=== PATIENT | female | born 1980 | race Caucasian/White ===

== ENCOUNTER 2017-03-04 20:39 | Day surgery (SDCO) | payer OTHER ==
[2017-03-04 22:18] LABS: BASOPHIL 0.7 % (0-2); EOSINOPHIL 4.1 % (0-5); HCT 32.9 % (37.0-47.0); LYMPHOCYTE 33.2 % (15-48); MCH 30.2 pg (25.0-31.0); MCHC 33.4 g/dL (32.0-36.0); MCV 90.4 fL (78.0-100.0); MONOCYTE 10.5 % (0-12); NEUTROPHIL 51.5 % (41-80); PLT 339 K/uL (150-400); RBC 3.64 M/uL (4.20-5.40); WBC 7.1 K/uL (4.0-10.5)
[2017-03-04 22:19] LABS: BILIRUBIN NEGATIVE (NEGATIVE); BLOOD NEGATIVE Ery/uL (NEGATIVE); CLARITY CLEAR (CLEAR); COLOR YELLOW (YELLOW); GLUCOSE (U) NORMAL (NORMAL); KETONE (U) NEGATIVE (NEGATIVE); LEUKOCYTES NEGATIVE Leu/uL (NEGATIVE); NITRITE NEGATIVE (NEGATIVE); PROTEIN TRACE (LOW) mg/dL (NEGATIVE); SPECIFIC GRAVITY 1.015 (1.001-1.030); UROBILINOGEN 0.2 mg/dL (0.2-1.0); pH 5.5 (5.0-9.0)
[2017-03-04 22:27] LABS: BACTERIA TRACE; MUCOUS MODERATE; URINARY RBC RARE
[2017-03-04 22:30] LABS: AMPHETAMINES NEGATIVE (NEGATIVE); BARBITURATES NEGATIVE (NEGATIVE); BENZODIAZEPINES POSITIVE (NEGATIVE); COCAINE NEGATIVE (NEGATIVE); MARIJUANA (THC) NEGATIVE (NEGATIVE)
[2017-03-04 22:31] LABS: ACETAMINOPHEN (TYLENOL) < 5.0 ug/mL (10.0-30.0); ALBUMIN 3.6 g/dL (3.5-5.0); ALCOHOL (ETOH) MEDICAL NONE DETECTED; BILIRUBIN - TOTAL 0.2 mg/dL (0.1-1.0); CREATININE 1.3 mg/dL (0.5-1.0); GLOBULIN (CALCULATION) 2.7 g/dL (2.2-4.2); POTASSIUM 3.7 mmol/L (3.5-5.1); SALICYLATE < 6 ug/mL (0-300); TOTAL PROTEIN 6.3 g/dL (6.4-8.3)
[2017-03-04 22:31] LABS: METHADONE NEGATIVE (NEGATIVE); TRICYCLIC ANTIDEPRESSANT NEGATIVE (NEGATIVE)
[2017-03-05 05:09] LABS: BASOPHIL 0.2 % (0-2); EOSINOPHIL 3.2 % (0-5); HCT 33.5 % (37.0-47.0); HGB 11.6 g/dl (12.5-16.0); LYMPHOCYTE 21.3 % (15-48); MCH 30.7 pg (25.0-31.0); MCHC 34.6 g/dL (32.0-36.0); MCV 88.6 fL (78.0-100.0); MPV 10.8 fL (6.0-9.5); NEUTROPHIL 67.3 % (41-80); PLT 328 K/uL (150-400); RBC 3.78 M/uL (4.20-5.40); RDW 11.8 % (11.5-14.0); WBC 8.8 K/uL (4.0-10.5)
[2017-03-05 05:18] LABS: ALBUMIN 3.8 g/dL (3.5-5.0); BILIRUBIN - TOTAL 0.2 mg/dL (0.1-1.0); GLOBULIN (CALCULATION) 2.7 g/dL (2.2-4.2); TOTAL PROTEIN 6.5 g/dL (6.4-8.3)
[2017-03-05] MEDS ORDERED: HUMALOG SC (08:04)
[2017-03-05] MEDS ORDERED: LYRICA 50MG CAP50 MG PO (08:04)
[2017-03-05] MEDS ORDERED: VOLTAREN **OUT75 MG PO (08:05)
[2017-03-05] MEDS ORDERED: ZOFRAN4 MG PO (08:05)
[2017-03-05] MEDS ORDERED: NORCO 5-325 TA1 EACH PO (08:05)
== END 2017-03-05 07:45 | disposition home or self-care (01) ==
LOC: FER 20:39 → FICU 03-05 00:31
PROVIDERS: Emergency Medicine; ADMIT Internal Medicine
DX: G93.41 Metabolic encephalopathy (principal); T42.6X1A Poisoning by other antiepileptic and sedative-hypnotic drugs, accidental (unintentional), initial encounter; E10.9 Type 1 diabetes mellitus without complications; N17.9 Acute kidney failure, unspecified; M79.7 Fibromyalgia; G35 Multiple sclerosis; F32.9 Major depressive disorder, single episode, unspecified; Z96.41 Presence of insulin pump (external) (internal); Z90.710 Acquired absence of both cervix and uterus; Z90.49 Acquired absence of other specified parts of digestive tract; Z79.4 Long term (current) use of insulin; Z79.1 Long term (current) use of non-steroidal anti-inflammatories (NSAID); Z79.899 Other long term (current) drug therapy; Z98.890 Other specified postprocedural states
CPT/HCPCS: 36415; 36600; 71010; 71250; 80053; 80305; 81001; 82803; 83605; 85025; 94002; G0378; G0480; J1170; J2704

== ENCOUNTER 2020-11-04 12:22 | Emergency (ER) | payer OTHER ==
[~2020-11-04 12:22] MED LIST: ADMELOG100 UNIT/1 SC; AMBIEN CR 12.12.5 MG PO; BENTYL10 MG PO; CYMBALTA30 MG PO; ESTRACE1 MG PO; EXCEDRIN MIGRA1 EACH PO; FIORICET1 EACH PO; HUMALOG SC; IBU800 MG PO; LYRICA 50MG CAP50 MG PO; LYRICA150 MG PO; LYRICA25 MG PO; MACROBID100 MG PO; NORCO 5-325 TA1 EACH PO; PHENERGAN25 M1 PO; PRILOSEC20 MG PO; TRESIBA100 UNIT/1 SC; VOLTAREN **OUT75 MG PO; ZANAFLEX4 MG PO; ZOFRAN4 MG PO; ZOFRAN8 MG PO
[2020-11-04 15:01] LABS: BILIRUBIN NEGATIVE (NEGATIVE); BLOOD NEGATIVE Ery/uL (NEGATIVE); CLARITY CLEAR (CLEAR); COLOR YELLOW (YELLOW); GLUCOSE (U) 3+ mg/dL (NORMAL); LEUKOCYTES NEGATIVE Leu/uL (NEGATIVE); NITRITE NEGATIVE (NEGATIVE); PROTEIN NEGATIVE (NEGATIVE); SPECIFIC GRAVITY 1.015 (1.001-1.030); UROBILINOGEN 0.2 mg/dL (0.2-1.0)
[2020-11-04 15:04] LABS: EOSINOPHIL 2.6 % (0-5); HCT 38.1 % (37.0-47.0); HGB 12.5 g/dl (12.5-16.0); MCH 30.3 pg (25.0-31.0); MCHC 32.8 g/dL (32.0-36.0); MCV 92.5 fL (78.0-100.0); MONOCYTE 5.8 % (0-12); MPV 10.5 fL (6.0-9.5); NEUTROPHIL 68.4 % (41-80); NRBC 0; PLT 378 K/uL (150-400); RBC 4.12 M/uL (4.20-5.40); RDW 11.7 % (11.5-14.0)
[2020-11-04 15:37] LABS: ALBUMIN 3.7 g/dL (3.4-5.0); BILIRUBIN - TOTAL 0.3 mg/dL (0.2-1.0); BUN/CREAT RATIO (CALC) 17.4 RATIO; CREATININE 1.15 mg/dL (0.51-0.95); GLOBULIN (CALCULATION) 4.1 g/dL; TOTAL PROTEIN 7.8 g/dL (6.4-8.2)
[2020-11-04] MEDS ORDERED: PREDNISONE 20MG20 MG PO (16:20)
[2020-11-04] MEDS ORDERED: VALACYCLOVIR1000 MG PO (16:20)
== END 2020-11-04 16:45 | disposition home or self-care (01) ==
LOC: FER 12:22
PROVIDERS: Nurse Practitioner Family
DX: G51.0 Bell's palsy (principal); E10.9 Type 1 diabetes mellitus without complications; Z88.8 Allergy status to other drugs, medicaments and biological substances
CPT/HCPCS: 36415; 70450; 80053; 80178; 81003; 85025; 93005

== ENCOUNTER 2020-11-26 13:42 | Emergency (ER) | payer OTHER ==
[~2020-11-26 13:42] MED LIST changes: +PREDNISONE 20MG20 MG PO; +VALACYCLOVIR1000 MG PO
[2020-11-26 14:41] LABS: BASOPHIL 0.8 % (0-2); EOSINOPHIL 2.2 % (0-5); HCT 38.5 % (37.0-47.0); HGB 12.5 g/dl (12.5-16.0); LYMPHOCYTE 21.8 % (15-48); MCHC 32.5 g/dL (32.0-36.0); MCV 92.5 fL (78.0-100.0); MONOCYTE 6.9 % (0-12); MPV 11.1 fL (6.0-9.5); NRBC 0; PLT 322 K/uL (150-400); RBC 4.16 M/uL (4.20-5.40); RDW 13.2 % (11.5-14.0); WBC 8.7 K/uL (4.0-10.5)
[2020-11-26 14:56] LABS: INR 1.06 (0.9-1.2); PROTHROMBIN TIME 13.1 SECONDS (11.4-13.6); PTT 24.3 SECONDS (22.2-34.7)
[2020-11-26 14:57] LABS: D-DIMER < 0.27 ug/mLFEU (0.00-0.41)
[2020-11-26 14:59] LABS: ALBUMIN 3.4 g/dL (3.4-5.0); BILIRUBIN - TOTAL 0.2 mg/dL (0.2-1.0); BUN/CREAT RATIO (CALC) 23.3 RATIO; CREATININE 1.03 mg/dL (0.51-0.95); GLOBULIN (CALCULATION) 3.3 g/dL; MAGNESIUM 2.2 mg/dL (1.8-2.4); POTASSIUM 4.6 mmol/L (3.5-5.1); TOTAL PROTEIN 6.7 g/dL (6.4-8.2)
[2020-11-26 15:10] LABS: PRO-BNP 133 pg/mL (<125)
[2020-11-26] MEDS ORDERED: NORCO 5-325 TA1 EACH PO (18:44)
== END 2020-11-26 19:05 | disposition home or self-care (01) ==
LOC: FER 13:42
PROVIDERS: Emergency Medicine
DX: R07.89 Other chest pain (principal)
CPT/HCPCS: 36415; 71045; 71275; 80053; 82550; 83690; 83735; 83880; 84484; 85025; 85379; 85610; 85730; 93005; J1170; J2405; J7030; Q9967

== ENCOUNTER 2021-06-07 12:16 | Emergency (ER) | payer OTHER ==
[2021-06-07 13:16] LABS: BASOPHIL 0.9 % (0-2); EOSINOPHIL 2.1 % (0-5); HCT 38.4 % (37.0-47.0); HGB 13.1 g/dl (12.5-16.0); LYMPHOCYTE 19.9 % (15-48); MCH 29.7 pg (25.0-31.0); MCHC 34.1 g/dL (32.0-36.0); MCV 87.1 fL (78.0-100.0); MONOCYTE 6.1 % (0-12); NEUTROPHIL 70.6 % (41-80); NRBC 0; PLT 453 K/uL (150-400); RBC 4.41 M/uL (4.20-5.40); RDW 11.9 % (11.5-14.0); WBC 8.5 K/uL (4.0-10.5)
[2021-06-07 13:32] LABS: ALBUMIN 3.8 g/dL (3.4-5.0); BILIRUBIN - TOTAL 0.4 mg/dL (0.2-1.0); BUN/CREAT RATIO (CALC) 8.9 RATIO; CREATININE 1.24 mg/dL (0.51-0.95); GLOBULIN (CALCULATION) 3.6 g/dL; POTASSIUM 4.4 mmol/L (3.5-5.1); TOTAL PROTEIN 7.4 g/dL (6.4-8.2)
[2021-06-07 14:14] LABS: INR 0.95 (0.9-1.2); PROTHROMBIN TIME 12.1 SECONDS (11.8-13.4)
[2021-06-07] MEDS ORDERED: PRILOSEC20 MG PO (17:07)
[2021-06-07] MEDS ORDERED: NORCO 5-325 TA1 EACH PO (17:07)
[2021-06-07] MEDS ORDERED: ZOFRAN4 M1 PO (17:07)
== END 2021-06-07 17:30 | disposition home or self-care (01) ==
LOC: FER 12:16
PROVIDERS: Emergency Medicine
DX: R07.89 Other chest pain (principal); E11.9 Type 2 diabetes mellitus without complications; Z88.8 Allergy status to other drugs, medicaments and biological substances; Z20.822 Contact with and (suspected) exposure to COVID-19
CPT/HCPCS: 36415; 71045; 80053; 84484; 85025; 85379; 85610; 85730; 93005; J1100; J1885; J2270; J2405; U0002

== ENCOUNTER 2021-07-11 13:43 | Emergency (ER) | payer OTHER ==
[~2021-07-11 13:43] MED LIST changes: +ZOFRAN4 M1 PO
[2021-07-11 16:08] LABS: BASOPHIL 0.3 % (0-2); EOSINOPHIL 4.1 % (0-5); LYMPHOCYTE 30.5 % (15-48); MCH 29.8 pg (25.0-31.0); MCHC 33.3 g/dL (32.0-36.0); MCV 89.3 fL (78.0-100.0); MONOCYTE 10.1 % (0-12); NEUTROPHIL 54.7 % (41-80); NRBC 0; PLT 284 K/uL (150-400); RBC 4.03 M/uL (4.20-5.40); RDW 12.3 % (11.5-14.0); WBC 3.9 K/uL (4.0-10.5)
[2021-07-11 16:29] LABS: ALBUMIN 3.4 g/dL (3.4-5.0); BILIRUBIN - TOTAL 0.2 mg/dL (0.2-1.0); BUN/CREAT RATIO (CALC) 10.1 RATIO; CREATININE 1.19 mg/dL (0.51-0.95); GLOBULIN (CALCULATION) 3.5 g/dL; POTASSIUM 3.9 mmol/L (3.5-5.1); TOTAL PROTEIN 6.9 g/dL (6.4-8.2)
[2021-07-11 16:35] LABS: LACTIC ACID 0.9 mmol/L (0.4-1.9)
[2021-07-11 18:30] LABS: BILIRUBIN NEGATIVE (NEGATIVE); BLOOD NEGATIVE Ery/uL (NEGATIVE); CLARITY CLEAR (CLEAR); COLOR YELLOW (YELLOW); GLUCOSE (U) NORMAL (NORMAL); LEUKOCYTES NEGATIVE Leu/uL (NEGATIVE); NITRITE NEGATIVE (NEGATIVE); PROTEIN NEGATIVE (NEGATIVE); SPECIFIC GRAVITY <=1.005 (1.001-1.030); UROBILINOGEN 0.2 mg/dL (0.2-1.0); pH 6.5 (5.0-9.0)
[2021-07-11] MEDS ORDERED: BENTYL10 MG PO (19:11)
[2021-07-11] MEDS ORDERED: ZOFRAN4 M1 PO (19:11)
== END 2021-07-11 19:35 | disposition home or self-care (01) ==
LOC: FER 13:43
PROVIDERS: Nurse Practitioner Family
DX: A08.4 Viral intestinal infection, unspecified (principal); E10.9 Type 1 diabetes mellitus without complications; Z88.8 Allergy status to other drugs, medicaments and biological substances; Z90.49 Acquired absence of other specified parts of digestive tract; Z90.710 Acquired absence of both cervix and uterus; Z98.890 Other specified postprocedural states
CPT/HCPCS: 36415; 80053; 81003; 82150; 83605; 83690; 85025; J2270; J2405; J7030; Q9967

== ENCOUNTER 2021-07-30 18:40 | Emergency (ER) | payer OTHER ==
[2021-07-30 19:56] LABS: BASOPHIL 0.8 % (0-2); EOSINOPHIL 3.6 % (0-5); HCT 34.2 % (37.0-47.0); HGB 11.5 g/dl (12.5-16.0); LYMPHOCYTE 24.2 % (15-48); MCH 30.3 pg (25.0-31.0); MCHC 33.6 g/dL (32.0-36.0); MCV 90.2 fL (78.0-100.0); MONOCYTE 7.7 % (0-12); NEUTROPHIL 63.4 % (41-80); NRBC 0; PLT 402 K/uL (150-400); RBC 3.79 M/uL (4.20-5.40); RDW 11.9 % (11.5-14.0); WBC 7.4 K/uL (4.0-10.5)
[2021-07-30 20:09] LABS: BILIRUBIN - TOTAL 0.5 mg/dL (0.2-1.0); BUN/CREAT RATIO (CALC) 17.5 RATIO; CREATININE 1.14 mg/dL (0.51-0.95); GLOBULIN (CALCULATION) 3.6 g/dL; POTASSIUM 4.6 mmol/L (3.5-5.1); TOTAL PROTEIN 7.6 g/dL (6.4-8.2)
[2021-07-30 20:59] LABS: BILIRUBIN NEGATIVE (NEGATIVE); BLOOD NEGATIVE Ery/uL (NEGATIVE); CLARITY CLEAR (CLEAR); COLOR YELLOW (YELLOW); GLUCOSE (U) 3+ mg/dL (NORMAL); LEUKOCYTES NEGATIVE Leu/uL (NEGATIVE); NITRITE NEGATIVE (NEGATIVE); PROTEIN NEGATIVE (NEGATIVE); SPECIFIC GRAVITY 1.015 (1.001-1.030); UROBILINOGEN 0.2 mg/dL (0.2-1.0); pH 5.5 (5.0-9.0)
[2021-07-30] MEDS ORDERED: MIRALAX17 GM PO (21:51)
== END 2021-07-30 23:00 | disposition home or self-care (01) ==
LOC: FER 18:40
PROVIDERS: Nurse Practitioner Family
DX: K59.00 Constipation, unspecified (principal); R11.2 Nausea with vomiting, unspecified; E10.9 Type 1 diabetes mellitus without complications; Z90.49 Acquired absence of other specified parts of digestive tract; Z90.710 Acquired absence of both cervix and uterus; Z88.8 Allergy status to other drugs, medicaments and biological substances
CPT/HCPCS: 36415; 74022; 80053; 81003; 85025; J1170; J2270; J2405; J7030

== ENCOUNTER 2021-08-05 11:52 | Emergency (ER) | payer OTHER ==
[~2021-08-05] VITALS: Ht 167.6 cm; Wt 59.0 kg
[~2021-08-05 11:52] MED LIST changes: +MIRALAX17 GM PO
[2021-08-05 13:15] LABS: BILIRUBIN NEGATIVE (NEGATIVE); BLOOD NEGATIVE Ery/uL (NEGATIVE); CLARITY CLEAR (CLEAR); COLOR YELLOW (YELLOW); GLUCOSE (U) 3+ mg/dL (NORMAL); LEUKOCYTES NEGATIVE Leu/uL (NEGATIVE); NITRITE NEGATIVE (NEGATIVE); PROTEIN NEGATIVE (NEGATIVE); SPECIFIC GRAVITY 1.015 (1.001-1.030); UROBILINOGEN 0.2 mg/dL (0.2-1.0); pH 6.5 (5.0-9.0)
[2021-08-05 13:15] LABS: BASOPHIL 0.9 % (0-2); EOSINOPHIL 4.7 % (0-5); HCT 37.2 % (37.0-47.0); HGB 12.1 g/dl (12.5-16.0); LYMPHOCYTE 21.4 % (15-48); MCH 30.2 pg (25.0-31.0); MCHC 32.5 g/dL (32.0-36.0); MCV 92.8 fL (78.0-100.0); MONOCYTE 6.8 % (0-12); NEUTROPHIL 65.9 % (41-80); NRBC 0; PLT 323 K/uL (150-400); RBC 4.01 M/uL (4.20-5.40); WBC 6.6 K/uL (4.0-10.5)
[2021-08-05 13:28] LABS: ALBUMIN 3.8 g/dL (3.4-5.0); BILIRUBIN - TOTAL 0.4 mg/dL (0.2-1.0); BUN/CREAT RATIO (CALC) 10.8 RATIO; CREATININE 1.02 mg/dL (0.51-0.95); GLOBULIN (CALCULATION) 3.6 g/dL; POTASSIUM 4.4 mmol/L (3.5-5.1); TOTAL PROTEIN 7.4 g/dL (6.4-8.2)
[2021-08-05] MEDS ORDERED: PHENERGAN25 M1 PO (15:27)
== END 2021-08-05 15:56 | disposition home or self-care (01) ==
LOC: FER 11:52
PROVIDERS: Emergency Medicine
DX: G89.29 Other chronic pain (principal); R10.12 Left upper quadrant pain; E11.9 Type 2 diabetes mellitus without complications; Z88.8 Allergy status to other drugs, medicaments and biological substances
CPT/HCPCS: 36415; 80053; 81003; 83690; 85025; J2405; J7030

== ENCOUNTER 2021-08-20 15:16 | Emergency (ER) | payer OTHER ==
[2021-08-20 15:46] LABS: BILIRUBIN NEGATIVE (NEGATIVE); BLOOD NEGATIVE Ery/uL (NEGATIVE); CLARITY CLOUDY (CLEAR); COLOR YELLOW (YELLOW); GLUCOSE (U) 1+ mg/dL (NORMAL); LEUKOCYTES NEGATIVE Leu/uL (NEGATIVE); NITRITE NEGATIVE (NEGATIVE); PROTEIN NEGATIVE (NEGATIVE); UROBILINOGEN 0.2 mg/dL (0.2-1.0); pH 7.5 (5.0-9.0)
[2021-08-20 15:56] LABS: BACTERIA 2+; SQUAMOUS EPITHELIAL CELLS 20-50
[2021-08-20 16:11] LABS: BASOPHIL 1.4 % (0-2); EOSINOPHIL 4.6 % (0-5); HCT 38.8 % (37.0-47.0); HGB 12.8 g/dl (12.5-16.0); LYMPHOCYTE 31.5 % (15-48); MCH 30.1 pg (25.0-31.0); MCV 91.3 fL (78.0-100.0); MONOCYTE 8.2 % (0-12); MPV 10.4 fL (6.0-9.5); NRBC 0; PLT 489 K/uL (150-400); RBC 4.25 M/uL (4.20-5.40); RDW 11.9 % (11.5-14.0); WBC 6.6 K/uL (4.0-10.5)
[2021-08-20 16:35] LABS: BILIRUBIN - TOTAL 0.4 mg/dL (0.2-1.0); BUN/CREAT RATIO (CALC) 19.8 RATIO; CREATININE 1.16 mg/dL (0.51-0.95); GLOBULIN (CALCULATION) 3.9 g/dL; POTASSIUM 4.6 mmol/L (3.5-5.1); TOTAL PROTEIN 7.9 g/dL (6.4-8.2)
== END 2021-08-20 19:22 | disposition home or self-care (01) ==
LOC: FER 15:16
PROVIDERS: Internal Medicine
DX: I95.1 Orthostatic hypotension (principal); E86.0 Dehydration; R10.12 Left upper quadrant pain; R10.32 Left lower quadrant pain; R11.2 Nausea with vomiting, unspecified; E11.9 Type 2 diabetes mellitus without complications; Z88.8 Allergy status to other drugs, medicaments and biological substances; Z79.4 Long term (current) use of insulin
CPT/HCPCS: 36415; 80053; 81001; 82150; 83690; 85025; 87076; 87088; J2270; J2405; J7030; Q9967

== ENCOUNTER 2021-09-12 18:00 | Emergency (ER) | payer OTHER ==
[2021-09-12 20:45] LABS: BILIRUBIN NEGATIVE (NEGATIVE); BLOOD NEGATIVE Ery/uL (NEGATIVE); CLARITY CLEAR (CLEAR); COLOR YELLOW (YELLOW); GLUCOSE (U) NORMAL (NORMAL); LEUKOCYTES 1+ Leu/uL (NEGATIVE); NITRITE NEGATIVE (NEGATIVE); PROTEIN NEGATIVE (NEGATIVE); SPECIFIC GRAVITY 1.015 (1.001-1.030); UROBILINOGEN 0.2 mg/dL (0.2-1.0)
[2021-09-12 20:48] LABS: BACTERIA TRACE
[2021-09-12 20:52] LABS: BASOPHIL 1.3 % (0-2); EOSINOPHIL 8.1 % (0-5); HGB 11.1 g/dl (12.5-16.0); LYMPHOCYTE 32.7 % (15-48); MCH 30.3 pg (25.0-31.0); MCHC 31.7 g/dL (32.0-36.0); MCV 95.6 fL (78.0-100.0); MONOCYTE 7.3 % (0-12); MPV 10.5 fL (6.0-9.5); NEUTROPHIL 50.2 % (41-80); NRBC 0; PLT 406 K/uL (150-400); RBC 3.66 M/uL (4.20-5.40); RDW 11.9 % (11.5-14.0)
[2021-09-12 21:07] LABS: ALBUMIN 3.4 g/dL (3.4-5.0); BILIRUBIN - TOTAL 0.2 mg/dL (0.2-1.0); BUN/CREAT RATIO (CALC) 14.1 RATIO; CREATININE 0.92 mg/dL (0.51-0.95); GLOBULIN (CALCULATION) 3.3 g/dL; POTASSIUM 4.3 mmol/L (3.5-5.1); TOTAL PROTEIN 6.7 g/dL (6.4-8.2)
== END 2021-09-13 00:09 | disposition home or self-care (01) ==
LOC: FER 18:00
PROVIDERS: Internal Medicine
DX: E10.43 Type 1 diabetes mellitus with diabetic autonomic (poly)neuropathy (principal); K31.84 Gastroparesis; Z79.4 Long term (current) use of insulin; Z88.8 Allergy status to other drugs, medicaments and biological substances
CPT/HCPCS: 36415; 80053; 81001; 83690; 85025; J1885; J2270; J2405; J2765; J7040

== ENCOUNTER → 2021-09-26 | Day surgery (SDC) | payer OTHER ==
[~2021-09-26] VITALS: Ht 170.2 cm; Wt 59.0 kg
[~2021-09-26] MED LIST changes: +ASPIRIN EC81 MG PO
== END | disposition home or self-care (01) ==
LOC: FAS 11:32
DX: E10.43 Type 1 diabetes mellitus with diabetic autonomic (poly)neuropathy (principal); K31.84 Gastroparesis; E10.42 Type 1 diabetes mellitus with diabetic polyneuropathy
CPT/HCPCS: 71045; 76000; 82962; C1788; J0690; J1170; J1644; J2250; J2704; J3010; J7120

== ENCOUNTER 2021-10-09 14:41 | Emergency (ER) | payer OTHER ==
[2021-10-09 19:59] LABS: BASOPHIL 0.9 % (0-2); EOSINOPHIL 2.8 % (0-5); HGB 11.3 g/dl (12.5-16.0); LYMPHOCYTE 19.7 % (15-48); MCH 29.7 pg (25.0-31.0); MCHC 32.3 g/dL (32.0-36.0); MCV 91.9 fL (78.0-100.0); MONOCYTE 5.6 % (0-12); NEUTROPHIL 70.7 % (41-80); NRBC 0; PLT 406 K/uL (150-400); RBC 3.81 M/uL (4.20-5.40); RDW 11.4 % (11.5-14.0); WBC 9.6 K/uL (4.0-10.5)
[2021-10-09 20:14] LABS: ALBUMIN 3.7 g/dL (3.4-5.0); ALKALINE PHOSHATASE 74 U/L (46-116); ALT <6 U/L (14-59); AST 10 U/L (15-37); BILIRUBIN - TOTAL 0.3 mg/dL (0.2-1.0); BUN 25 mg/dL (7-18); BUN/CREAT RATIO (CALC) 25.5 RATIO; CHLORIDE 99 mmol/L (98-107); CO2 (BICARBONATE) 29 mmol/L (21-32); CREATININE 0.98 mg/dL (0.51-0.95); GLOBULIN (CALCULATION) 3.3 g/dL; GLUCOSE 234 mg/dL (74-106); MAGNESIUM 2.2 mg/dL (1.8-2.4); POTASSIUM 4.4 mmol/L (3.5-5.1)
[2021-10-09] MEDS ORDERED: COMPAZINE10 M1 PO (22:38)
== END 2021-10-09 23:20 | disposition home or self-care (01) ==
LOC: FER 14:41
PROVIDERS: Internal Medicine
DX: E10.43 Type 1 diabetes mellitus with diabetic autonomic (poly)neuropathy (principal); K31.84 Gastroparesis; N17.9 Acute kidney failure, unspecified; Z96.41 Presence of insulin pump (external) (internal)
CPT/HCPCS: 36415; 80053; 83735; 85025; J0780; J1642; J2270; J7030

== ENCOUNTER 2021-10-20 20:05 | Inpatient (IN) | payer OTHER ==
[~2021-10-20] VITALS: Ht 170.2 cm; Wt 60.8 kg
[~2021-10-20 20:05] MED LIST changes: +COMPAZINE10 M1 PO
[2021-10-20 21:42] LABS: BASOPHIL 1.2 % (0-2); EOSINOPHIL 9.9 % (0-5); HCT 35.4 % (37.0-47.0); LYMPHOCYTE 30.1 % (15-48); MCH 30.5 pg (25.0-31.0); MCHC 33.9 g/dL (32.0-36.0); MCV 90.1 fL (78.0-100.0); MPV 10.9 fL (6.0-9.5); NEUTROPHIL 48.6 % (41-80); NRBC 0; PLT 329 K/uL (150-400); RBC 3.93 M/uL (4.20-5.40); RDW 11.4 % (11.5-14.0); WBC 6.6 K/uL (4.0-10.5)
[2021-10-20 22:02] LABS: BUN/CREAT RATIO (CALC) 27.2 RATIO; CREATININE 1.03 mg/dL (0.51-0.95); POTASSIUM 4.8 mmol/L (3.5-5.1)
[2021-10-20 22:07] LABS: LACTIC ACID 0.3 mmol/L (0.4-1.9)
[2021-10-21 06:05] LABS: CORONAVIRUS 2019 SARS-COV-2 NEGATIVE (NEGATIVE); INFLUENZA A NAA NEGATIVE (NEGATIVE)
[2021-10-21] MEDS ORDERED: AMBIEN CR 12.12.5 MG PO (18:44)
[2021-10-21 22:06] LABS: BILIRUBIN NEGATIVE (NEGATIVE); BLOOD NEGATIVE Ery/uL (NEGATIVE); CLARITY CLEAR (CLEAR); COLOR YELLOW (YELLOW); GLUCOSE (U) NORMAL (NORMAL); LEUKOCYTES NEGATIVE Leu/uL (NEGATIVE); NITRITE NEGATIVE (NEGATIVE); PROTEIN NEGATIVE (NEGATIVE); SPECIFIC GRAVITY 1.025 (1.001-1.030); UROBILINOGEN 0.2 mg/dL (0.2-1.0); pH 5.5 (5.0-9.0)
[2021-10-22 06:40] LABS: BASOPHIL 1.1 % (0-2); EOSINOPHIL 7.6 % (0-5); HCT 33.3 % (37.0-47.0); HGB 10.4 g/dl (12.5-16.0); LYMPHOCYTE 42.4 % (15-48); MCH 29.5 pg (25.0-31.0); MCHC 31.2 g/dL (32.0-36.0); MONOCYTE 8.7 % (0-12); MPV 10.5 fL (6.0-9.5); NRBC 0; PLT 275 K/uL (150-400); RBC 3.52 M/uL (4.20-5.40); RDW 11.4 % (11.5-14.0); WBC 5.5 K/uL (4.0-10.5)
[2021-10-22 06:43] LABS: MCV 94.6 fL (78.0-100.0)
[2021-10-22 07:05] LABS: BUN/CREAT RATIO (CALC) 14.4 RATIO; CREATININE 1.04 mg/dL (0.51-0.95); POTASSIUM 5.1 mmol/L (3.5-5.1)
[2021-10-23 06:25] LABS: BASOPHIL 0.7 % (0-2); EOSINOPHIL 7.5 % (0-5); HCT 31.1 % (37.0-47.0); LYMPHOCYTE 35.8 % (15-48); MCH 29.9 pg (25.0-31.0); MCHC 32.2 g/dL (32.0-36.0); MCV 93.1 fL (78.0-100.0); MONOCYTE 7.4 % (0-12); MPV 10.6 fL (6.0-9.5); NEUTROPHIL 48.6 % (41-80); NRBC 0; PLT 266 K/uL (150-400); RBC 3.34 M/uL (4.20-5.40); RDW 11.2 % (11.5-14.0); RETICULOCYTE COUNT 0.8 % (1.0-2.0)
[2021-10-23 07:04] LABS: IRON % SATURATION 17.9 %SAT (20-50)
[2021-10-23 07:32] LABS: CREATININE 0.87 mg/dL (0.51-0.95); FOLIC ACID (SERUM) 8.2 ng/mL (8.6-58.9); POTASSIUM 4.3 mmol/L (3.5-5.1)
[2021-10-24 09:51] LABS: BASOPHIL 0.8 % (0-2); EOSINOPHIL 8.8 % (0-5); HCT 31.1 % (37.0-47.0); HGB 10.1 g/dl (12.5-16.0); LYMPHOCYTE 26.5 % (15-48); MCH 29.9 pg (25.0-31.0); MCHC 32.5 g/dL (32.0-36.0); MONOCYTE 6.8 % (0-12); MPV 10.3 fL (6.0-9.5); NEUTROPHIL 56.9 % (41-80); NRBC 0; PLT 259 K/uL (150-400); RBC 3.38 M/uL (4.20-5.40); RDW 11.3 % (11.5-14.0); WBC 6.2 K/uL (4.0-10.5)
[2021-10-24 10:18] LABS: BILIRUBIN - TOTAL 0.2 mg/dL (0.2-1.0); BUN/CREAT RATIO (CALC) 6.5 RATIO; CREATININE 0.92 mg/dL (0.51-0.95); POTASSIUM 4.1 mmol/L (3.5-5.1)
[2021-10-26] MEDS ORDERED: ONDANSETRON ODT4 MG PO (16:43)
[2021-10-26] MEDS ORDERED: REGLAN10 MG PO (16:43)
[2021-10-26] MEDS ORDERED: NORCO 5-325 TA1 EACH PO (16:43)
== END 2021-10-26 17:45 | disposition home or self-care (01) | DRG 74 ==
LOC: FER 20:05 → FMS 10-21 06:04
PROVIDERS: Emergency Medicine Emergency Medical Services; Internal Medicine; Nurse Practitioner; ADMIT Internal Medicine
DX: E10.43 Type 1 diabetes mellitus with diabetic autonomic (poly)neuropathy (principal); K31.84 Gastroparesis; Z20.822 Contact with and (suspected) exposure to COVID-19; E86.0 Dehydration; D50.9 Iron deficiency anemia, unspecified; G35 Multiple sclerosis; F32.A Depression, unspecified; M79.7 Fibromyalgia; F41.9 Anxiety disorder, unspecified; Z96.41 Presence of insulin pump (external) (internal); Z90.49 Acquired absence of other specified parts of digestive tract; Z90.710 Acquired absence of both cervix and uterus; Z79.899 Other long term (current) drug therapy; Z91.51 Personal history of suicidal behavior; Z88.8 Allergy status to other drugs, medicaments and biological substances
CPT/HCPCS: 36415; 74018; 80048; 80053; 81003; 82009; 82607; 82746; 82962; 83036; 83540; 83550; 83605; 83690; 83735; 84145; 85025; 93005; 94010; C9113; J1170; J1642; J1885; J2060; J2270; J2405; J2550; J2765; J2916; J3411; J3475; J7030; J7042; J7120; U0002

== ENCOUNTER 2021-11-03 18:56 | Emergency (ER) | payer OTHER ==
[~2021-11-03 18:56] MED LIST changes: +ONDANSETRON ODT4 MG PO; +REGLAN10 MG PO
[2021-11-03 20:25] LABS: BASOPHIL 1.1 % (0-2); EOSINOPHIL 6.4 % (0-5); HCT 40.5 % (37.0-47.0); HGB 13.1 g/dl (12.5-16.0); MCH 29.4 pg (25.0-31.0); MCHC 32.3 g/dL (32.0-36.0); MONOCYTE 6.4 % (0-12); MPV 10.8 fL (6.0-9.5); NEUTROPHIL 60.9 % (41-80); NRBC 0; PLT 482 K/uL (150-400); RBC 4.45 M/uL (4.20-5.40); RDW 11.6 % (11.5-14.0); WBC 10.2 K/uL (4.0-10.5)
[2021-11-03 20:43] LABS: BILIRUBIN - TOTAL 0.2 mg/dL (0.2-1.0); BUN/CREAT RATIO (CALC) 21.8 RATIO; CREATININE 1.01 mg/dL (0.51-0.95); POTASSIUM 5.2 mmol/L (3.5-5.1)
[2021-11-03 21:42] LABS: BILIRUBIN NEGATIVE (NEGATIVE); BLOOD NEGATIVE Ery/uL (NEGATIVE); CLARITY CLEAR (CLEAR); COLOR YELLOW (YELLOW); GLUCOSE (U) NORMAL (NORMAL); LEUKOCYTES NEGATIVE Leu/uL (NEGATIVE); NITRITE NEGATIVE (NEGATIVE); PROTEIN NEGATIVE (NEGATIVE); UROBILINOGEN 0.2 mg/dL (0.2-1.0)
[2021-11-03 21:49] LABS: BACTERIA TRACE
[2021-11-04 03:49] LABS: CORONAVIRUS 2019 SARS-COV-2 NEGATIVE (NEGATIVE); INFLUENZA A NAA NEGATIVE (NEGATIVE)
== END 2021-11-04 05:42 | disposition home or self-care (01) ==
LOC: FER 18:56
PROVIDERS: Emergency Medicine Emergency Medical Services; Physician Assistant
DX: K29.70 Gastritis, unspecified, without bleeding (principal); K31.89 Other diseases of stomach and duodenum; E10.9 Type 1 diabetes mellitus without complications; Z20.822 Contact with and (suspected) exposure to COVID-19; Z88.8 Allergy status to other drugs, medicaments and biological substances
CPT/HCPCS: 36415; 80053; 81001; 83605; 83690; 84145; 85025; J0780; J1642; J1885; J2270; J2405; J3360; J7040; Q0169; U0002

== ENCOUNTER 2022-04-04 16:04 | Emergency (ER) | payer OTHER ==
[2022-04-04 21:08] LABS: BASOPHIL 0.9 % (0-2); HCT 37.7 % (37.0-47.0); LYMPHOCYTE 30.9 % (15-48); MCHC 34.5 g/dL (32.0-36.0); MONOCYTE 6.9 % (0-12); MPV 10.5 fL (6.0-9.5); NEUTROPHIL 58.1 % (41-80); NRBC 0; PLT 363 K/uL (150-400); RBC 4.19 M/uL (4.20-5.40); RDW 12.2 % (11.5-14.0); WBC 9.8 K/uL (4.0-10.5)
[2022-04-04 21:37] LABS: ALBUMIN 3.4 g/dL (3.4-5.0); BILIRUBIN - TOTAL 0.5 mg/dL (0.2-1.0); BUN/CREAT RATIO (CALC) 30.9 RATIO; CREATININE 0.94 mg/dL (0.51-0.95); GLOBULIN (CALCULATION) 3.7 g/dL; POTASSIUM 3.7 mmol/L (3.5-5.1); TOTAL PROTEIN 7.1 g/dL (6.4-8.2)
[2022-04-04] MEDS ORDERED: PERCOCET 5-3251 EACH PO ×2 (23:04→23:46)
[2022-04-04] MEDS ORDERED: ONDANSETRON ODT4 MG PO ×2 (23:04→23:46)
== END 2022-04-04 23:59 | disposition home or self-care (01) ==
LOC: FER 16:04
PROVIDERS: Internal Medicine
DX: E11.43 Type 2 diabetes mellitus with diabetic autonomic (poly)neuropathy (principal); K31.84 Gastroparesis; Z88.8 Allergy status to other drugs, medicaments and biological substances; Z28.310 Unvaccinated for COVID-19
CPT/HCPCS: 36415; 80053; 83690; 85025; J1170; J1642; J2405; J7120

== ENCOUNTER 2022-04-24 12:54 | Emergency (ER) | payer OTHER ==
[~2022-04-24 12:54] MED LIST changes: +PERCOCET 5-3251 EACH PO
[2022-04-24 13:58] LABS: BASOPHIL 0.9 % (0-2); EOSINOPHIL 1.4 % (0-5); HCT 41.3 % (37.0-47.0); HGB 14.3 g/dl (12.5-16.0); LYMPHOCYTE 23.2 % (15-48); MCH 30.6 pg (25.0-31.0); MCHC 34.6 g/dL (32.0-36.0); MCV 88.2 fL (78.0-100.0); MONOCYTE 7.3 % (0-12); MPV 10.6 fL (6.0-9.5); NEUTROPHIL 66.9 % (41-80); NRBC 0; PLT 420 K/uL (150-400); RBC 4.68 M/uL (4.20-5.40); RDW 11.7 % (11.5-14.0); WBC 9.4 K/uL (4.0-10.5)
[2022-04-24 14:20] LABS: ALBUMIN 3.7 g/dL (3.4-5.0); BILIRUBIN - TOTAL 0.4 mg/dL (0.2-1.0); BUN/CREAT RATIO (CALC) 22.4 RATIO; CREATININE 1.16 mg/dL (0.51-0.95); GLOBULIN (CALCULATION) 3.7 g/dL; POTASSIUM 5.4 mmol/L (3.5-5.1); TOTAL PROTEIN 7.4 g/dL (6.4-8.2)
[2022-04-24 14:27] LABS: LACTIC ACID 1.3 mmol/L (0.4-1.9)
[2022-04-24 14:40] LABS: BILIRUBIN 1+ mg/dL (NEGATIVE); BLOOD NEGATIVE Ery/uL (NEGATIVE); CLARITY HAZY (CLEAR); COLOR YELLOW (YELLOW); GLUCOSE (U) NORMAL (NORMAL); LEUKOCYTES NEGATIVE Leu/uL (NEGATIVE); NITRITE NEGATIVE (NEGATIVE); PROTEIN NEGATIVE (NEGATIVE); SPECIFIC GRAVITY 1.025 (1.001-1.030); UROBILINOGEN 0.2 mg/dL (0.2-1.0)
[2022-04-24 14:45] LABS: ECSTASY (MDMA) NEGATIVE (NEGATIVE); MARIJUANA (THC) NEGATIVE (NEGATIVE); METHADONE NEGATIVE (NEGATIVE)
[2022-04-24 14:46] LABS: OPIATES POSITIVE (NEGATIVE)
[2022-04-24 14:47] LABS: AMPHETAMINES NEGATIVE (NEGATIVE); OXYCODONE POSITIVE (NEGATIVE)
[2022-04-24 14:49] LABS: BARBITURATES NEGATIVE (NEGATIVE)
[2022-04-24] MEDS ORDERED: PHENERGAN25 M1 PO (17:24)
== END 2022-04-24 17:45 | disposition home or self-care (01) ==
LOC: FER 12:54
PROVIDERS: Emergency Medicine
DX: E10.43 Type 1 diabetes mellitus with diabetic autonomic (poly)neuropathy (principal); E10.65 Type 1 diabetes mellitus with hyperglycemia; K31.84 Gastroparesis; Z88.8 Allergy status to other drugs, medicaments and biological substances; Z20.822 Contact with and (suspected) exposure to COVID-19; Z28.310 Unvaccinated for COVID-19
CPT/HCPCS: 36415; 71045; 80053; 80305; 81003; 82009; 83605; 83690; 83735; 85025; 87040; J1170; J1642; J2405; J2550; J7030; U0002

== ENCOUNTER 2022-05-23 05:38 | Emergency (ER) | payer OTHER ==
[2022-05-23 07:00] LABS: CORONAVIRUS 2019 SARS-COV-2 NEGATIVE (NEGATIVE); INFLUENZA A NAA NEGATIVE (NEGATIVE)
[2022-05-23 07:22] LABS: BASOPHIL 1.1 % (0-2); EOSINOPHIL 4.2 % (0-5); HCT 38.4 % (37.0-47.0); HGB 13.5 g/dl (12.5-16.0); LYMPHOCYTE 23.1 % (15-48); MCH 31.7 pg (25.0-31.0); MCHC 35.2 g/dL (32.0-36.0); MCV 90.1 fL (78.0-100.0); MONOCYTE 7.1 % (0-12); MPV 10.5 fL (6.0-9.5); NEUTROPHIL 64.2 % (41-80); NRBC 0; PLT 398 K/uL (150-400); RBC 4.26 M/uL (4.20-5.40); RDW 11.6 % (11.5-14.0); WBC 9.5 K/uL (4.0-10.5)
[2022-05-23 07:32] LABS: ALBUMIN 3.1 g/dL (3.4-5.0); BILIRUBIN - TOTAL 0.5 mg/dL (0.2-1.0); BUN/CREAT RATIO (CALC) 24.5 RATIO; CREATININE 0.98 mg/dL (0.51-0.95); GLOBULIN (CALCULATION) 3.5 g/dL; POTASSIUM 4.1 mmol/L (3.5-5.1); TOTAL PROTEIN 6.6 g/dL (6.4-8.2)
[2022-05-23 07:54] LABS: BILIRUBIN NEGATIVE (NEGATIVE); BLOOD NEGATIVE Ery/uL (NEGATIVE); CLARITY CLEAR (CLEAR); COLOR YELLOW (YELLOW); GLUCOSE (U) NORMAL (NORMAL); LEUKOCYTES NEGATIVE Leu/uL (NEGATIVE); NITRITE NEGATIVE (NEGATIVE); PROTEIN NEGATIVE (NEGATIVE); UROBILINOGEN 0.2 mg/dL (0.2-1.0)
[2022-05-23 07:59] LABS: AMPHETAMINES NEGATIVE (NEGATIVE); BARBITURATES NEGATIVE (NEGATIVE); ECSTASY (MDMA) NEGATIVE (NEGATIVE); MARIJUANA (THC) NEGATIVE (NEGATIVE); METHADONE NEGATIVE (NEGATIVE); OPIATES POSITIVE (NEGATIVE); OXYCODONE NEGATIVE (NEGATIVE)
[2022-05-23 08:02] LABS: BACTERIA TRACE; URINARY RBC RARE; URINARY WBC RARE
== END 2022-05-23 11:57 | disposition home or self-care (01) ==
LOC: FER 05:38
PROVIDERS: Emergency Medicine
DX: E10.43 Type 1 diabetes mellitus with diabetic autonomic (poly)neuropathy (principal); K31.84 Gastroparesis; Z28.310 Unvaccinated for COVID-19; Z20.822 Contact with and (suspected) exposure to COVID-19; Z88.8 Allergy status to other drugs, medicaments and biological substances
CPT/HCPCS: 36415; 80053; 80305; 81001; 83690; 84484; 85025; J1885; J2270; J2405; J2550; J2765; J7030; U0002

== ENCOUNTER 2022-06-03 13:08 | Emergency (ER) | payer OTHER ==
[2022-06-03 14:31] LABS: ALBUMIN 2.8 g/dL (3.4-5.0); BILIRUBIN - TOTAL 0.5 mg/dL (0.2-1.0); BUN/CREAT RATIO (CALC) 23.6 RATIO; CREATININE 0.89 mg/dL (0.51-0.95); GLOBULIN (CALCULATION) 3.3 g/dL; POTASSIUM 4.1 mmol/L (3.5-5.1); TOTAL PROTEIN 6.1 g/dL (6.4-8.2)
[2022-06-03 14:42] LABS: BASOPHIL 0.7 % (0-2); EOSINOPHIL 2.9 % (0-5); HCT 36.7 % (37.0-47.0); HGB 12.3 g/dl (12.5-16.0); LYMPHOCYTE 18.9 % (15-48); MCH 31.1 pg (25.0-31.0); MCHC 33.5 g/dL (32.0-36.0); MCV 92.9 fL (78.0-100.0); MONOCYTE 7.1 % (0-12); MPV 10.1 fL (6.0-9.5); NEUTROPHIL 70.1 % (41-80); NRBC 0; PLT 431 K/uL (150-400); RBC 3.95 M/uL (4.20-5.40); RDW 11.9 % (11.5-14.0); WBC 11.2 K/uL (4.0-10.5)
[2022-06-03 15:20] LABS: CORONAVIRUS 2019 SARS-COV-2 NEGATIVE (NEGATIVE); INFLUENZA A NAA NEGATIVE (NEGATIVE)
[2022-06-03 16:06] LABS: BILIRUBIN NEGATIVE (NEGATIVE); BLOOD NEGATIVE Ery/uL (NEGATIVE); CLARITY CLEAR (CLEAR); COLOR YELLOW (YELLOW); GLUCOSE (U) NORMAL (NORMAL); LEUKOCYTES NEGATIVE Leu/uL (NEGATIVE); NITRITE NEGATIVE (NEGATIVE); PROTEIN NEGATIVE (NEGATIVE); SPECIFIC GRAVITY 1.015 (1.001-1.030); UROBILINOGEN 0.2 mg/dL (0.2-1.0); pH 7.5 (5.0-9.0)
== END 2022-06-03 17:26 | disposition home or self-care (01) ==
LOC: FER 13:08
PROVIDERS: Nurse Practitioner Family
DX: R10.10 Upper abdominal pain, unspecified (principal); R11.2 Nausea with vomiting, unspecified; E10.9 Type 1 diabetes mellitus without complications; Z88.8 Allergy status to other drugs, medicaments and biological substances; Z20.822 Contact with and (suspected) exposure to COVID-19; Z28.310 Unvaccinated for COVID-19
CPT/HCPCS: 36415; 80053; 81003; 82009; 85025; J1170; J1642; J2405; J7030; U0002